=== PATIENT | male | born 1965 | race Caucasian/White ===

== ENCOUNTER → 2018-01-18 | Outpatient (CLI) | payer OTHER ==
[~2018-01-18] MED LIST: ACYCLOVIR 400400 MG PO; APAP500 PO; BACLOFEN20 MG PO; BACTRIM DS TAB1 EACH; CLOMIPHENE CITR50 MG PO; DEPO-TESTO200 MG/1 M IM; DIPROLENE 0.05%30 ML TP; GLUMETZA500 PO; INDOCIN25 MG/5 ML PO; KLOR-CON 1010 MEQ PO; KRISTALOSE20 GM; LEVAQUIN 500 M500 M4 PO; LEVAQUIN 750 M750 MG PO; LEVOTHYROXINE0.05 MG PO; LEVSIN0.125 MG PO; LMX 530 GM TP; LORTAB 7.5/5001 TA1 PO; METOLAZONE 2.52.5 M1 PO; NAPROSYN250 MG; NUVIGIL PO; PHENTERMINE HCL30 MG PO; PRAMIPEXOLE DI0.5 MG PO; PROVIGIL 200 M200 M1 PO; PROZAC20 MG PO; REQUIP 0.25 M0.25 M1; SPIRONOLACTONE25 M1 PO; TESTOPEL; VALIUM2 MG PO; VIMOVO 500-201 EACH PO; VITAMIN D250000 UNIT PO; VOLTAREN GEL 1100 G1; ZANAFLEX4 M1 PO
== END ==
LOC: HYPER 01-16 14:25
DX: E11.621 Type 2 diabetes mellitus with foot ulcer (principal); L89.313 Pressure ulcer of right buttock, stage 3; L98.411 Non-pressure chronic ulcer of buttock limited to breakdown of skin; E03.9 Hypothyroidism, unspecified; M54.9 Dorsalgia, unspecified; G82.20 Paraplegia, unspecified; Z79.84 Long term (current) use of oral hypoglycemic drugs

== ENCOUNTER → 2018-01-25 | Outpatient (CLI) | payer OTHER ==
[~2018-01-25] MED LIST changes: -CLOMIPHENE CITR50 MG PO; -KLOR-CON 1010 MEQ PO; -LEVAQUIN 750 M750 MG PO; -LEVSIN0.125 MG PO; -METOLAZONE 2.52.5 M1 PO; -PRAMIPEXOLE DI0.5 MG PO; -PROVIGIL 200 M200 M1 PO; -PROZAC20 MG PO; -VIMOVO 500-201 EACH PO
== END ==
LOC: HYPER 01-24 16:11
DX: E11.622 Type 2 diabetes mellitus with other skin ulcer (principal); L89.313 Pressure ulcer of right buttock, stage 3; L98.411 Non-pressure chronic ulcer of buttock limited to breakdown of skin; E03.9 Hypothyroidism, unspecified; M54.9 Dorsalgia, unspecified; G82.20 Paraplegia, unspecified; Z79.84 Long term (current) use of oral hypoglycemic drugs

== ENCOUNTER → 2018-02-16 | Outpatient (CLI) | payer OTHER | LOC: HYPER 06:46 | DX: E11.622 Type 2 diabetes mellitus with other skin ulcer (principal); L98.411 Non-pressure chronic ulcer of buttock limited to breakdown of skin; L89.313 Pressure ulcer of right buttock, stage 3; L89.312 Pressure ulcer of right buttock, stage 2; E03.9 Hypothyroidism, unspecified; M54.9 Dorsalgia, unspecified; G82.20 Paraplegia, unspecified; Z79.84 Long term (current) use of oral hypoglycemic drugs ==

== ENCOUNTER 2018-03-03 21:18 | Inpatient (IN) | payer OTHER ==
[~2018-03-03] VITALS: Ht 167.6 cm; Wt 104.3 kg
--- NOTE | ~2018-03-03 | HC ---
[facility] [place] [address] CONSULTATION Name: NNEKA HARDWICK Room #: 453-P [facility] M.R.#: [id number] Admission: 03/03/18 Attend Phys: Shadi Stewart DO Discharge: Date of : 61 Report #: [id number] THIS REPORT FOR: //name// CC: Shadi Guadalupe DATE OF SERVICE: 03/05/2018 REASON FOR CONSULTATION: Pressure sore of right buttock with cellulitis. HISTORY OF PRESENT ILLNESS: The patient is a 52-year-old gentleman, paraplegic from spinal cord injury, who is well known to Dr. Brett Mejia of [facility] and has seen Dr. Mejia in his clinic. The patient has history of urinary tract infections, has a Mackay bladder catheter. The patient was admitted to the Emergency Room after the patient noticed signs and symptoms of autonomic dysreflexia, which he attributes to probably he has an infection below the zone of his spinal cord injury or a wound. The patient has a chronic suprapubic catheter. The patient was admitted through the Emergency Room, was diagnosed with a urinary tract infection with temperature of 101.5, white blood count was 12,000. The patient has been treated with antibiotics. The patient was noted to have a pressure sore of his right buttock with cellulitis, methicillin-sensitive Staphylococcus aureus infection was diagnosed. Wound Care is consulted due to the wound with cellulitis. Chest x-ray showed left lower lobe infiltrate consistent with pneumonia. PAST MEDICAL HISTORY: 1. Spinal cord injury with paraplegia. 2. Autonomic dysreflexia. 3. History of urinary tract infections with neurogenic bladder and suprapubic catheter. 4. History of hypothyroidism. 5. History of depression. 6. History of obstructive sleep apnea. ALLERGIES: MACRODANTIN, PIPERACILLIN, SULFA, AMOXICILLIN AND PENICILLIN. MEDICATIONS: Include baclofen, metformin, Valium, acyclovir, Synthroid, Kristalose, pramipexole, Prozac, Vimovo, potassium, Levsin, Zanaflex, Voltaren, Lortab and naproxen. REVIEW OF SYSTEMS: The patient lives at home with his , they sleep in the same bed. She lifts him out of bed with a Dilip lift, has a Sleep Number bed. PHYSICAL EXAMINATION: GENERAL: Shows chronically ill-appearing gentleman, mildly obese with paraplegia, weakness of the lower extremities. [address] [id number] CONSULTATION Name: NNEKA HARDWICK Room #: 453-[facility] M.R.#: [id number] Admission: 03/03/18 Attend Phys: Shadi Stewart DO Discharge: Date of : 61 Report #: [id number] HEENT: Mucous membranes are moist. LUNGS: Respirations unlabored. HEART: Shows regular rate and rhythm. ABDOMEN: Soft and obese. Suprapubic tube is present. EXTREMITIES: Lower extremities show no wounds. Examination of the patient's back and buttocks shows a stage 3 pressure sore of the right buttock measuring 2 x 3 cm, which is relatively superficial. This is surrounded by mild zone of erythema. Photographs from 2 days ago show greater erythema around the wound. By this appearance, the wound has improved. There is no evidence of deep necrosis or tunneling, no evidence of abscess. IMPRESSION: 1. Spinal cord injury with paraplegia. 2. Neurogenic bladder with suprapubic catheter and history of urinary tract infection, urinary tract infection was diagnosed by urinalysis on this admission. 3. History of autonomic dysreflexia. 4. Stage 3 pressure wound of the right buttock with secondary methicillin-sensitive Staphylococcus aureus cellulitis. 5. Cellulitis, right buttock, improved. PLAN: With IV antibiotics, wound is much improved. The patient to go home on oral antibiotics. Recommend the patient's that they cleanse the area with Hibiclens soap and topically apply mupirocin 2% antibiotic ointment to the wound daily. She will use a foam border. The patient to be seen in [facility] the next week. We will discuss with the patient and his in the clinic, possibly ordering him an improved offloading bed or low air loss mattress for home. The patient will be discharged home today. By: [id number] Isma Spann MD /[email or web address]
[2018-03-03 21:19] VITALS: BP 143/84
[2018-03-03] MEDS ORDERED: CLOMIPHENE CITR50 MG PO (21:31)
[2018-03-03] MEDS ORDERED: PRAMIPEXOLE DI0.5 MG PO (21:32)
[2018-03-03] MEDS ORDERED: PROVIGIL 200 M200 M1 PO (21:32)
[2018-03-03] MEDS ORDERED: PROZAC20 MG PO (21:33)
[2018-03-03] MEDS ORDERED: VIMOVO 500-201 EACH PO (21:35)
[2018-03-03] MEDS ORDERED: LEVSIN0.125 MG PO (21:35)
[2018-03-03] MEDS ORDERED: KLOR-CON 1010 MEQ PO (21:35)
[2018-03-03] MEDS ORDERED: METOLAZONE 2.52.5 M1 PO (21:36)
[2018-03-03 22:53] LABS: ABSOLUTE NEUTROPHILS 10.2 thou/uL (1.4-8.2); BASOPHILS 0.2 % (0.0-2.0); EOSINOPHILS 0.1 % (0.0-3.0); HEMATOCRIT 40.1 % (42.0-52.0); HEMOGLOBIN 13.2 gm/dL (14.0-18.0); LYMPHOCYTES 5.9 % (24.0-44.0); MCH 29.3 pg (26.0-34.0); MCHC 32.8 g/dL (28.0-37.0); MCV 89.3 fL (80.0-100.0); MONOCYTES 9.7 % (1.0-8.0); PLATELET COUNT 195 thou/uL (150-400); POLYS 84.1 % (36.0-66.0); RBC 4.49 mil/uL (4.50-6.00); RDW 15.8 % (10.5-14.5); WBC 12.1 thou/uL (4.0-11.0)
[2018-03-03 23:03] LABS: CREATININE 0.9 mg/dL (0.7-1.3)
[2018-03-03 23:08] LABS: ALBUMIN 3.5 g/dL (3.4-5.0); DIRECT BILIRUBIN 0.1 mg/dL (<0.1-0.3); TOTAL BILIRUBIN 0.5 mg/dL (<0.1-1.0); TOTAL PROTEIN 7.6 g/dL (6.4-8.2)
[2018-03-03 23:12] LABS: URINE BILIRUBIN NEGATIVE (Negative); URINE BLOOD 3+ (Negative); URINE CLARITY SL CLOUDY; URINE COLOR YELLOW; URINE GLUCOSE-RANDOM* NEGATIVE (Negative); URINE KETONES 2+ (Negative); URINE LEUKOCYTES 2+ (Negative); URINE NITRITE NEGATIVE (Negative); URINE PROTEIN (DIPSTICK) 1+ (Negative); URINE SPECIFIC GRAVITY >= 1.030 (1.005-1.035)
[2018-03-03 23:21] LABS: POTASSIUM 4.4 mmol/L (3.5-5.1)
[2018-03-03 23:27] LABS: MUCUS 4-6 Moderate strn/LPF (None Seen); SQUAMOUS 0-3 Few /LPF (0-3); URINE WBC >25 Many /HPF (0-5)
[2018-03-03 23:28] LABS: BACTERIA >30 Many /HPF (None Seen); CASTS None Seen /LPF (None Seen); CRYSTALS None Seen /LPF (None Seen); URINE RBC 3-10 Few /HPF (0-2)
[2018-03-03 23:36] VITALS: BP 151/87
[2018-03-04 00:16] VITALS: BP 117/70
[2018-03-04] MEDS ORDERED: BACLOFEN20 MG PO (00:22)
[2018-03-04 01:06] VITALS: BP 109/65
[2018-03-04 04:10] VITALS: BP 128/74
[2018-03-04 08:00] VITALS: BP 120/68
[2018-03-04 08:24] LABS: HEMATOCRIT 38.7 % (42.0-52.0); HEMOGLOBIN 12.6 gm/dL (14.0-18.0); MCH 29.1 pg (26.0-34.0); MCHC 32.7 g/dL (28.0-37.0); RBC 4.35 mil/uL (4.50-6.00); RDW 15.8 % (10.5-14.5)
[2018-03-04 08:31] LABS: CALCIUM 8.8 mg/dL (8.5-10.1); POTASSIUM 3.9 mmol/L (3.5-5.1)
[2018-03-04 16:00] VITALS: BP 139/75
[2018-03-04 20:35] VITALS: BP 109/63
[2018-03-05 03:17] VITALS: BP 99/62
[2018-03-05 08:00] VITALS: BP 110/64
[2018-03-05 10:28] LABS: ABSOLUTE NEUTROPHILS 3.7 thou/uL (1.4-8.2); BASOPHILS 0.2 % (0.0-2.0); HEMATOCRIT 36.4 % (42.0-52.0); HEMOGLOBIN 11.9 gm/dL (14.0-18.0); LYMPHOCYTES 11.7 % (24.0-44.0); MCHC 32.8 g/dL (28.0-37.0); MCV 88.6 fL (80.0-100.0); MONOCYTES 9.9 % (1.0-8.0); PLATELET COUNT 200 thou/uL (150-400); POLYS 76.2 % (36.0-66.0); RBC 4.11 mil/uL (4.50-6.00); RDW 16.3 % (10.5-14.5); WBC 4.9 thou/uL (4.0-11.0)
[2018-03-05 10:41] LABS: CALCIUM 8.8 mg/dL (8.5-10.1); POTASSIUM 3.5 mmol/L (3.5-5.1)
[2018-03-05 15:46] VITALS: BP 118/62
[2018-03-05 19:31] VITALS: BP 120/59
[2018-03-05 23:25] LABS: URINE BILIRUBIN NEGATIVE (Negative); URINE BLOOD 1+ (Negative); URINE CLARITY CLEAR; URINE COLOR STRAW; URINE GLUCOSE-RANDOM* NEGATIVE (Negative); URINE KETONES NEGATIVE (Negative); URINE LEUKOCYTES-REFLEX NEGATIVE (Negative); URINE NITRITE-REFLEX NEGATIVE (Negative); URINE PROTEIN (DIPSTICK) NEGATIVE (Negative); URINE SPECIFIC GRAVITY <= 1.005 (1.005-1.035); URINE UROBILINOGEN 0.2 E.U./dl (0.2-1.0)
[2018-03-05 23:36] LABS: SQUAMOUS None Seen /LPF (0-3)
[2018-03-05 23:37] LABS: BACTERIA-REFLEX None Seen /HPF (None Seen); CASTS None Seen /LPF (None Seen); CRYSTALS None Seen /LPF (None Seen); URINE RBC 0-2 Rare /HPF (0-2); URINE WBC-REFLEX 0-5 Rare /HPF (0-5)
[2018-03-06 04:00] VITALS: BP 119/76
[2018-03-06] MEDS ORDERED: LEVAQUIN 750 M750 MG PO (07:26)
[2018-03-06 09:14] VITALS: BP 119/76
== END 2018-03-06 10:16 | disposition home or self-care (01) | DRG 871 ==
LOC: ER 21:18 → EROBS 23:37 → 4W 23:37
PROVIDERS: Emergency Medicine; Hospitalist; Nurse Practitioner Family
PROC: 5A09357 Assistance with Respiratory Ventilation, Less than 24 Consecutive Hours, Continuous Positive Airway Pressure (ICD-10-PCS; principal; 2018-03-04)
DX: A41.9 Sepsis, unspecified organism (principal); J18.9 Pneumonia, unspecified organism; L89.313 Pressure ulcer of right buttock, stage 3; N39.0 Urinary tract infection, site not specified; L03.317 Cellulitis of buttock; E03.9 Hypothyroidism, unspecified; N31.9 Neuromuscular dysfunction of bladder, unspecified; B95.61 Methicillin susceptible Staphylococcus aureus infection as the cause of diseases classified elsewhere; F32.9 Major depressive disorder, single episode, unspecified; G47.33 Obstructive sleep apnea (adult) (pediatric); G90.4 Autonomic dysreflexia; E66.9 Obesity, unspecified; Z68.37 Body mass index [BMI] 37.0-37.9, adult; Z79.84 Long term (current) use of oral hypoglycemic drugs; Z79.899 Other long term (current) drug therapy; Z88.0 Allergy status to penicillin; Z88.1 Allergy status to other antibiotic agents; Z88.2 Allergy status to sulfonamides; Z88.8 Allergy status to other drugs, medicaments and biological substances
CPT/HCPCS: 10040

== ENCOUNTER → 2018-03-13 | Outpatient (CLI) | payer OTHER ==
[~2018-03-13] MED LIST changes: +CLOMIPHENE CITR50 MG PO; +KLOR-CON 1010 MEQ PO; +LEVAQUIN 750 M750 MG PO; +LEVSIN0.125 MG PO; +METOLAZONE 2.52.5 M1 PO; +PRAMIPEXOLE DI0.5 MG PO; +PROVIGIL 200 M200 M1 PO; +PROZAC20 MG PO; +VIMOVO 500-201 EACH PO
== END ==
LOC: HYPER 06:56
DX: E11.622 Type 2 diabetes mellitus with other skin ulcer (principal); L98.411 Non-pressure chronic ulcer of buttock limited to breakdown of skin; L89.313 Pressure ulcer of right buttock, stage 3; E03.9 Hypothyroidism, unspecified; L84 Corns and callosities; M54.9 Dorsalgia, unspecified; G82.20 Paraplegia, unspecified; Z79.84 Long term (current) use of oral hypoglycemic drugs; Z68.41 Body mass index [BMI] 40.0-44.9, adult; Z87.01 Personal history of pneumonia (recurrent)

== ENCOUNTER → 2018-04-18 | Outpatient (CLI) | payer OTHER | LOC: HYPER 04-11 06:49 | DX: E11.622 Type 2 diabetes mellitus with other skin ulcer (principal); L98.411 Non-pressure chronic ulcer of buttock limited to breakdown of skin; L89.313 Pressure ulcer of right buttock, stage 3; G82.20 Paraplegia, unspecified; R20.2 Paresthesia of skin; M54.9 Dorsalgia, unspecified; E03.9 Hypothyroidism, unspecified; Z79.84 Long term (current) use of oral hypoglycemic drugs ==

== ENCOUNTER → 2018-05-10 | Outpatient (CLI) | payer OTHER | LOC: HYPER 06:38 | DX: E11.622 Type 2 diabetes mellitus with other skin ulcer (principal); L89.313 Pressure ulcer of right buttock, stage 3; L98.411 Non-pressure chronic ulcer of buttock limited to breakdown of skin; E03.9 Hypothyroidism, unspecified; M54.9 Dorsalgia, unspecified; G82.20 Paraplegia, unspecified; Z68.41 Body mass index [BMI] 40.0-44.9, adult; Z87.01 Personal history of pneumonia (recurrent); Z79.84 Long term (current) use of oral hypoglycemic drugs ==

== ENCOUNTER → 2018-06-01 | Outpatient (CLI) | payer OTHER | LOC: HYPER 06:59 | DX: E11.622 Type 2 diabetes mellitus with other skin ulcer (principal); L97.313 Non-pressure chronic ulcer of right ankle with necrosis of muscle; L89.312 Pressure ulcer of right buttock, stage 2; L98.411 Non-pressure chronic ulcer of buttock limited to breakdown of skin; L84 Corns and callosities; E03.9 Hypothyroidism, unspecified; M54.9 Dorsalgia, unspecified; G82.20 Paraplegia, unspecified; Z87.01 Personal history of pneumonia (recurrent); Z79.84 Long term (current) use of oral hypoglycemic drugs ==

== ENCOUNTER → 2018-06-16 | Outpatient (CLI) | payer OTHER | LOC: HYPER 07:35 | DX: E11.622 Type 2 diabetes mellitus with other skin ulcer (principal); L89.313 Pressure ulcer of right buttock, stage 3; L89.322 Pressure ulcer of left buttock, stage 2; L98.411 Non-pressure chronic ulcer of buttock limited to breakdown of skin; L84 Corns and callosities; E03.9 Hypothyroidism, unspecified; M54.9 Dorsalgia, unspecified; G82.20 Paraplegia, unspecified; Z87.01 Personal history of pneumonia (recurrent); Z79.84 Long term (current) use of oral hypoglycemic drugs ==

== ENCOUNTER → 2018-08-07 | Outpatient (CLI) | payer OTHER | LOC: HYPER 06:54 | DX: E11.622 Type 2 diabetes mellitus with other skin ulcer (principal); L89.313 Pressure ulcer of right buttock, stage 3; L98.411 Non-pressure chronic ulcer of buttock limited to breakdown of skin; L84 Corns and callosities; E03.9 Hypothyroidism, unspecified; G82.20 Paraplegia, unspecified; M35.3 Polymyalgia rheumatica; M54.9 Dorsalgia, unspecified; Z79.84 Long term (current) use of oral hypoglycemic drugs ==

== ENCOUNTER → 2018-08-28 | Outpatient (CLI) | payer OTHER | LOC: HYPER 06:52 | DX: E11.622 Type 2 diabetes mellitus with other skin ulcer (principal); L89.313 Pressure ulcer of right buttock, stage 3; L98.411 Non-pressure chronic ulcer of buttock limited to breakdown of skin; L84 Corns and callosities; E03.9 Hypothyroidism, unspecified; G82.20 Paraplegia, unspecified; G47.30 Sleep apnea, unspecified; M35.3 Polymyalgia rheumatica; Z79.84 Long term (current) use of oral hypoglycemic drugs ==

== ENCOUNTER → 2018-09-25 | Outpatient (CLI) | payer OTHER | LOC: HYPER 07:04 | DX: E11.622 Type 2 diabetes mellitus with other skin ulcer (principal); L89.313 Pressure ulcer of right buttock, stage 3; L98.411 Non-pressure chronic ulcer of buttock limited to breakdown of skin; L84 Corns and callosities; E03.9 Hypothyroidism, unspecified; G82.20 Paraplegia, unspecified; G47.30 Sleep apnea, unspecified; M35.3 Polymyalgia rheumatica; Z79.84 Long term (current) use of oral hypoglycemic drugs ==

== ENCOUNTER → 2018-10-30 | Outpatient (CLI) | payer OTHER | LOC: HYPER 06:50 | DX: E11.622 Type 2 diabetes mellitus with other skin ulcer (principal); L89.313 Pressure ulcer of right buttock, stage 3; L98.411 Non-pressure chronic ulcer of buttock limited to breakdown of skin; S31.821A Laceration without foreign body of left buttock, initial encounter; L84 Corns and callosities; E03.9 Hypothyroidism, unspecified; G47.33 Obstructive sleep apnea (adult) (pediatric); G82.20 Paraplegia, unspecified; M54.9 Dorsalgia, unspecified; M35.3 Polymyalgia rheumatica; Z79.84 Long term (current) use of oral hypoglycemic drugs; X58.XXXA Exposure to other specified factors, initial encounter; Y93.89 Activity, other specified; Y92.89 Other specified places as the place of occurrence of the external cause; Y99.8 Other external cause status ==

== ENCOUNTER → 2019-01-03 | Outpatient (CLI) | payer OTHER | LOC: HYPER 12-28 07:07 | DX: E11.622 Type 2 diabetes mellitus with other skin ulcer (principal); L89.313 Pressure ulcer of right buttock, stage 3; L98.411 Non-pressure chronic ulcer of buttock limited to breakdown of skin; M54.9 Dorsalgia, unspecified; L84 Corns and callosities; G82.20 Paraplegia, unspecified; E03.9 Hypothyroidism, unspecified; R20.2 Paresthesia of skin; Z79.84 Long term (current) use of oral hypoglycemic drugs; Z87.01 Personal history of pneumonia (recurrent) ==

== ENCOUNTER → 2019-01-17 | Outpatient (CLI) | payer OTHER | LOC: HYPER 06:58 | DX: E11.622 Type 2 diabetes mellitus with other skin ulcer (principal); L89.313 Pressure ulcer of right buttock, stage 3; L98.411 Non-pressure chronic ulcer of buttock limited to breakdown of skin; E03.9 Hypothyroidism, unspecified; G82.20 Paraplegia, unspecified; G47.30 Sleep apnea, unspecified; M35.3 Polymyalgia rheumatica; Z79.84 Long term (current) use of oral hypoglycemic drugs ==

== ENCOUNTER → 2019-02-06 | Outpatient (CLI) | payer OTHER | LOC: HYPER 07:02 | DX: E11.622 Type 2 diabetes mellitus with other skin ulcer (principal); L89.313 Pressure ulcer of right buttock, stage 3; L98.411 Non-pressure chronic ulcer of buttock limited to breakdown of skin; M54.9 Dorsalgia, unspecified; L84 Corns and callosities; E03.9 Hypothyroidism, unspecified; G82.20 Paraplegia, unspecified; R20.2 Paresthesia of skin; Z79.84 Long term (current) use of oral hypoglycemic drugs; Z79.01 Long term (current) use of anticoagulants ==

== ENCOUNTER → 2019-02-28 | Outpatient (CLI) | payer OTHER | LOC: HYPER 06:50 | DX: E11.622 Type 2 diabetes mellitus with other skin ulcer (principal); L89.313 Pressure ulcer of right buttock, stage 3; L98.491 Non-pressure chronic ulcer of skin of other sites limited to breakdown of skin; E03.9 Hypothyroidism, unspecified; G82.20 Paraplegia, unspecified; G47.30 Sleep apnea, unspecified; R20.2 Paresthesia of skin; M35.3 Polymyalgia rheumatica; M54.9 Dorsalgia, unspecified; Z79.84 Long term (current) use of oral hypoglycemic drugs ==

== ENCOUNTER → 2019-03-20 | Outpatient (CLI) | payer OTHER | LOC: HYPER 03-14 06:38 | DX: E11.622 Type 2 diabetes mellitus with other skin ulcer (principal); L89.313 Pressure ulcer of right buttock, stage 3; L98.411 Non-pressure chronic ulcer of buttock limited to breakdown of skin; M54.9 Dorsalgia, unspecified; L84 Corns and callosities; E03.9 Hypothyroidism, unspecified; G82.20 Paraplegia, unspecified; R20.2 Paresthesia of skin; Z87.01 Personal history of pneumonia (recurrent); Z79.84 Long term (current) use of oral hypoglycemic drugs ==

== ENCOUNTER → 2019-04-18 | Outpatient (CLI) | payer OTHER | LOC: HYPER 06:36 | DX: E11.622 Type 2 diabetes mellitus with other skin ulcer (principal); L89.313 Pressure ulcer of right buttock, stage 3; L97.411 Non-pressure chronic ulcer of right heel and midfoot limited to breakdown of skin; L84 Corns and callosities; E03.9 Hypothyroidism, unspecified; M54.9 Dorsalgia, unspecified; G82.20 Paraplegia, unspecified; R20.2 Paresthesia of skin; Z79.84 Long term (current) use of oral hypoglycemic drugs; Z87.01 Personal history of pneumonia (recurrent) ==

== ENCOUNTER → 2019-05-22 | Outpatient (CLI) | payer OTHER | LOC: HYPER 07:09 | DX: E11.622 Type 2 diabetes mellitus with other skin ulcer (principal); L89.313 Pressure ulcer of right buttock, stage 3; L98.411 Non-pressure chronic ulcer of buttock limited to breakdown of skin; E03.9 Hypothyroidism, unspecified; G82.20 Paraplegia, unspecified; G47.30 Sleep apnea, unspecified; R20.2 Paresthesia of skin; M54.9 Dorsalgia, unspecified; M35.3 Polymyalgia rheumatica; Z79.84 Long term (current) use of oral hypoglycemic drugs ==

== ENCOUNTER → 2019-06-26 | Outpatient (CLI) | payer OTHER | LOC: HYPER 06-12 06:47 | DX: E11.622 Type 2 diabetes mellitus with other skin ulcer (principal); L89.313 Pressure ulcer of right buttock, stage 3; L98.491 Non-pressure chronic ulcer of skin of other sites limited to breakdown of skin; L84 Corns and callosities; E03.9 Hypothyroidism, unspecified; R20.2 Paresthesia of skin; M54.9 Dorsalgia, unspecified; G82.20 Paraplegia, unspecified; Z87.01 Personal history of pneumonia (recurrent); Z79.84 Long term (current) use of oral hypoglycemic drugs ==

== ENCOUNTER → 2019-07-17 | Outpatient (CLI) | payer OTHER | LOC: HYPER 06:38 | DX: E11.622 Type 2 diabetes mellitus with other skin ulcer (principal); L89.313 Pressure ulcer of right buttock, stage 3; L98.411 Non-pressure chronic ulcer of buttock limited to breakdown of skin; E03.9 Hypothyroidism, unspecified; G82.20 Paraplegia, unspecified; M54.9 Dorsalgia, unspecified; Z79.84 Long term (current) use of oral hypoglycemic drugs ==

== ENCOUNTER → 2019-08-06 | Outpatient (CLI) | payer OTHER | LOC: HYPER 15:00 | DX: E11.622 Type 2 diabetes mellitus with other skin ulcer (principal); L89.313 Pressure ulcer of right buttock, stage 3; L98.411 Non-pressure chronic ulcer of buttock limited to breakdown of skin; L84 Corns and callosities; M54.9 Dorsalgia, unspecified; G82.20 Paraplegia, unspecified; E03.9 Hypothyroidism, unspecified; K58.9 Irritable bowel syndrome, unspecified; G47.30 Sleep apnea, unspecified; Z79.84 Long term (current) use of oral hypoglycemic drugs ==

== ENCOUNTER → 2019-12-13 | Outpatient (CLI) | payer OTHER | LOC: HYPER 08:48 | DX: E11.622 Type 2 diabetes mellitus with other skin ulcer (principal); L89.313 Pressure ulcer of right buttock, stage 3; L98.411 Non-pressure chronic ulcer of buttock limited to breakdown of skin; E03.9 Hypothyroidism, unspecified; G82.20 Paraplegia, unspecified; G47.30 Sleep apnea, unspecified; M35.3 Polymyalgia rheumatica; M54.9 Dorsalgia, unspecified; Z79.84 Long term (current) use of oral hypoglycemic drugs ==

== ENCOUNTER → 2019-12-27 | Outpatient (CLI) | payer OTHER | LOC: HYPER 11:59 | DX: E11.622 Type 2 diabetes mellitus with other skin ulcer (principal); L89.313 Pressure ulcer of right buttock, stage 3; L98.411 Non-pressure chronic ulcer of buttock limited to breakdown of skin; L84 Corns and callosities; G82.20 Paraplegia, unspecified; M54.9 Dorsalgia, unspecified; E03.9 Hypothyroidism, unspecified; K58.9 Irritable bowel syndrome, unspecified; Z79.84 Long term (current) use of oral hypoglycemic drugs ==

== ENCOUNTER → 2021-07-09 | Outpatient (CLI) | payer BC, OTHER | LOC: HYPER 08:47 | PROVIDERS: ATTEND Emergency Medicine | DX: E11.622 Type 2 diabetes mellitus with other skin ulcer (principal); L89.313 Pressure ulcer of right buttock, stage 3; L98.412 Non-pressure chronic ulcer of buttock with fat layer exposed; L84 Corns and callosities; G82.20 Paraplegia, unspecified; M54.9 Dorsalgia, unspecified; E03.9 Hypothyroidism, unspecified; K58.9 Irritable bowel syndrome, unspecified; G47.30 Sleep apnea, unspecified; Z87.01 Personal history of pneumonia (recurrent); Z98.890 Other specified postprocedural states; Z79.84 Long term (current) use of oral hypoglycemic drugs; Z79.899 Other long term (current) drug therapy ==

== ENCOUNTER → 2021-07-30 | Outpatient (CLI) | payer BC, OTHER | LOC: HYPER 10:44 | PROVIDERS: ATTEND Emergency Medicine | DX: E11.622 Type 2 diabetes mellitus with other skin ulcer (principal); L89.313 Pressure ulcer of right buttock, stage 3; L98.412 Non-pressure chronic ulcer of buttock with fat layer exposed; L84 Corns and callosities; G82.20 Paraplegia, unspecified; M54.9 Dorsalgia, unspecified; E03.9 Hypothyroidism, unspecified; K58.9 Irritable bowel syndrome, unspecified; G47.30 Sleep apnea, unspecified; Z87.01 Personal history of pneumonia (recurrent); Z79.84 Long term (current) use of oral hypoglycemic drugs ==